=== PATIENT | female | born 1995 | race Two or more races ===

== ENCOUNTER 2019-07-16 15:56 | Emergency (ER) | payer MEDICAID, OTHER ==
[~2019-07-16] VITALS: Ht 154.9 cm; Wt 110.0 kg
[2019-07-16 16:00] VITALS: BP 152/91
--- NOTE | 2019-07-16 16:39 | PHYS DOC ---
Past Medical History Past Medical History: No Pertinent History (KALYAN HICKS APRN) Past Surgical History: No Surgical History (KALYAN HICKS APRN) Smoking Status: Never Smoker Alcohol Use: None Drug Use: None (KALYAN HICKS APRN) Adult General Chief Complaint Chief Complaint: VAGINAL BLEEDING HPI HPI Patient is a 24 year old female who reports vaginal bleeding for 4 weeks. Patient is also complaining of 5 out of 10 abdominal cramping. Reports using 3 tampons per 24 hours. (KALYAN HICKS APRN) Review of Systems Review of Systems Constitutional: Denies fever or chills [] Eyes: Denies change in visual acuity, redness, or eye pain [] HENT: Denies nasal congestion or sore throat [] Respiratory: Denies cough or shortness of breath [] Cardiovascular: No additional information not addressed in HPI [] GI: Reports vaginal bleeding and pelvic pain denies nausea, vomiting, bloody stools or diarrhea [] : Denies dysuria or hematuria [] Musculoskeletal: Denies back pain or joint pain [] Integument: Denies rash or skin lesions [] Neurologic: Denies headache, focal weakness or sensory changes [] All other systems were reviewed and found to be within normal limits, except as documented in this note. (KALYAN HICKS APRN) Allergies Allergies Allergies Coded Allergies Type Severity Reaction Last Updated Verified No Known Drug Allergies 01/08/15 No (RASHAD GLEASON DO) Physical Exam Physical Exam Constitutional: Well developed, well nourished, no acute distress, non-toxic appearance. [] HENT: Normocephalic, atraumatic, bilateral external ears normal, oropharynx moist, no oral exudates, nose normal. [] Eyes: PERRLA, EOMI, conjunctiva normal, no discharge. [] Neck: Normal range of motion, no tenderness, supple, no stridor. [] Cardiovascular:Heart rate regular rhythm, no murmur [] Lungs & Thorax: Bilateral breath sounds clear to auscultation [] Abdomen: Bowel sounds normal, soft, no tenderness, no masses, no pulsatile m asses. [] pelvic exam External pelvic appears normal/ Cervical closed, no CMT no adnexal tenderness trace amount of blood in the vaginal vault. Skin: Warm, dry, no erythema, no rash. [] Back: No tenderness, no CVA tenderness. [] Extremities: No tenderness, no cyanosis, no clubbing, ROM intact, no edema. [] Neurologic: Alert and oriented X 3, normal motor function, normal sensory function, no focal deficits noted. [] Psychologic: Affect normal, judgement normal, mood normal. [] (KALYAN HICKS APRN) Current Patient Data Vital Signs Vital Signs Date Time Temp Pulse Resp B/P (MAP) Pulse Ox O2 Delivery O2 Flow Rate FiO2 07/16/19 16:00 98.2 113 18 152/91 (111) 98 Room Air 98.2 (GLEASON,RASHAD R DO) Lab Values Laboratory Tests Test 07/16/19 16:20 07/16/19 16:25 07/16/19 16:50 07/16/19 17:35 Chlamydia DNA Probe Negative (Negative) Neisseria gonorrhoeae DNA Probe Negative (Negative) POC Urine HCG, Qualitative Hcg negative (Negative) White Blood Count 11.3 x10^3/uL (4.0-11.0) H Red Blood Count 4.28 x10^6/uL (3.50-5.40) Hemoglobin 12.0 g/dL (12.0-15.5) Hematocrit 36.4 % (36.0-47.0) Mean Corpuscular Volume 85 fL (79-100) Mean Corpuscular Hemoglobin 28 pg (25-35) Mean Corpuscular Hemoglobin Concent 33 g/dL (31-37) Red Cell Distribution Width 14.8 % (11.5-14.5) H Platelet Count 426 x10^3/uL (140-400) H Neutrophils (%) (Auto) 72 % (31-73) Lymphocytes (%) (Auto) 20 % (24-48) L Monocytes (%) (Auto) 6 % (0-9) Eosinophils (%) (Auto) 2 % (0-3) Basophils (%) (Auto) 1 % (0-3) Neutrophils # (Auto) 8.1 x10^3/uL (1.8-7.7) H Lymphocytes # (Auto) 2.2 x10^3/uL (1.0-4.8) Monocytes # (Auto) 0.7 x10^3/uL (0.0-1.1) Eosinophils # (Auto) 0.2 x10^3/uL (0.0-0.7) Basophils # (Auto) 0.1 x10^3/uL (0.0-0.2) Urine Collection Type Unknown Urine Color Red Urine Clarity Turbid Urine pH Urine Specific [place] Urine Protein mg/dL (NEG-TRACE) Urine Glucose (UA) mg/dL (NEG) Urine Ketones (Stick) mg/dL (NEG) Urine Blood (NEG) Urine Nitrite (NEG) Urine Bilirubin (NEG) Urine Urobilinogen Dipstick mg/dL (0.2 mg/dL) Urine Leukocyte Esterase (NEG) Urine RBC Tntc /HPF (0-2) Urine WBC 1-4 /HPF (0-4) Urine Squamous Epithelial Cells Mod /LPF Urine Bacteria Mod /HPF (0-FEW) Urine Mucus Marked /LPF Laboratory Tests 07/16/19 16:50 Microbiology 07/16/19 Wet Prep - Final, Complete (RASHAD GLEASON DO) EKG EKG [] (KALYAN HICKS APRN) Radiology/Procedures Radiology/Procedures [] (KALYAN HICKS APRN) Course & Med Decision Making Course & Med Decision Making Pertinent Labs and Imaging studies reviewed. (See chart for details) This is a 24-year-old female patient presenting to the ED today with vaginal bleeding for 4 weeks. Trace amount of bleeding noted due to on pelvic exam. Negative urine hCG, CBC with a normal WBC, normal hemoglobin and hematocrit. Wet prep noted for BV. Discharge and Flagyl. Pelvic ultrasound was negative for any acute findings. + for BV, d/c with flagyl. Recommended following up with an [facility]AF [facility]ER. Patient reports she has an appointment with [facility] mid July 2019. Provided return precautions and discharged in stable condition. (KALYAN HICKS APRN) Dragon Disclaimer Dragon Disclaimer This electronic medical record was generated, in whole or in part, using a voice recognition dictation system. (KALYAN HICKS APRN) Departure Departure Impression: Primary Impression: Dysfunctional uterine bleeding Additional Impression: Bacterial vaginosis Disposition: HOME, SELF-CARE Condition: STABLE Referrals: UNKNOWN PCP NAME (PCP) HOMA HUTCHINSON Jr, MD follow up with your doctor or OBGYN in 1 week Patient Instructions: Uterine Bleeding, Dysfunctional, [id number] Additional Instructions: You were evaluated in the emergency room for vaginal bleeding. Please [facility]2 weeks. Come back to the ED at any point symptoms worsen. Scripts Metronidazole (FLAGYL) 500 Mg Tablet 1 TAB PO BID, #14 TAB Prov: KALYAN HICKS APRN 07/16/19 Attending Signature Attending Signature I have reviewed the PA/[employer]EL[employer]'s note and plan of care. I was available for consultation as needed during the patient's visit in the emergency department. I agree with the clinical impression, plan, and disposition. (RASHAD GLEASON DO) Problem Qualifiers KALYAN HICKS APRN Jul 16, 2019 16:39 RASHAD GLEASON DO Jul 17, 2019 21:54
[2019-07-16 16:59] LABS: BASO # 0.1 x10^3/uL (0.0-0.2); BASO % 1 % (0-3); EOS # 0.2 x10^3/uL (0.0-0.7); EOS % 2 % (0-3); HEMATOCRIT 36.4 % (36.0-47.0); LYMPH # 2.2 x10^3/uL (1.0-4.8); LYMPH % 20 % (24-48); MEAN CORPUSCULAR HEMOGLOBIN 28 pg (25-35); MEAN CORPUSCULAR HGB CONC 33 g/dL (31-37); MEAN CORPUSCULAR VOLUME 85 fL (79-100); MONO # 0.7 x10^3/uL (0.0-1.1); MONO % 6 % (0-9); NEUT # 8.1 x10^3/uL (1.8-7.7); NEUT % 72 % (31-73); PLATELET COUNT 426 x10^3/uL (140-400); RED BLOOD COUNT 4.28 x10^6/uL (3.50-5.40); RED CELL DISTRIBUTION WIDTH 14.8 % (11.5-14.5); WHITE BLOOD COUNT 11.3 x10^3/uL (4.0-11.0)
--- NOTE | 2019-07-16 17:52 | RAD ---
PELVIS COMPLETE History: Vaginal bleeding for 5 weeks Comparison: None. Findings: Multiple transabdominal sonographic images of the pelvis are submitted. Endometrium is within normal limits at 0.5 cm. Uterus measured 7.4 x 5.1 x 4.1 cm. Left ovary measured 1.7 x 1.6 x 3.1 cm with normal color flow and low resistance vascularity. Right ovary measured 3.5 x 1.8 x 2 cm with normal color flow and low resistance vascularity. No free fluid is demonstrated. Impression: 1. No significant abnormality is demonstrated. Electronically signed by: Oren Gorman MD (07/16/2019 5:48 PM) [id number]
[2019-07-16 18:01] LABS: CLARITY,URINE TURBID
[2019-07-16 18:04] LABS: COLOR,URINE RED; SQUAMOUS EPITHELIAL CELL,UR MOD /LPF
[2019-07-16 18:05] LABS: RBC,URINE TNTC /HPF (0-2)
[2019-07-16 18:14] LABS: BACTERIA,URINE MOD /HPF (0-FEW)
[2019-07-16] MEDS ORDERED: METR500T PO (18:22)
[2019-07-17 19:09] LABS: GC PROBE Negative (Negative)
== END 2019-07-16 18:16 | disposition home or self-care (01) ==
LOC: ER 15:56
DX: N93.8 Other specified abnormal uterine and vaginal bleeding (principal); N76.0 Acute vaginitis; B96.89 Other specified bacterial agents as the cause of diseases classified elsewhere; R10.2 Pelvic and perineal pain
CPT/HCPCS: 36415; 76856; 81001; 81025; 85025; 87491; 87591; 99284; Q0111